=== PATIENT | female | born 1940 | race Caucasian/White ===

== ENCOUNTER 2016-10-04 13:53 | Emergency (ER) | payer MEDICARE, OTHER ==
[~2016-10-04] VITALS: Ht 157.5 cm; Wt 72.6 kg
[2016-10-04 14:39] VITALS: BP 146/65
--- NOTE | 2016-10-04 14:58 | RAD ---
Left foot, 3 views, 10/04/2016: History: Foot pain for 3 days The bony structures are demineralized. There are mild scattered degenerative changes. No acute fracture or destructive bony lesion is seen. There is a small inferior calcaneal spur. There is mild generalized subcutaneous edema. IMPRESSION: No acute bony abnormality is detected.
--- NOTE | 2016-10-04 15:49 | PHYS DOC ---
Past Medical History Past Medical History: High Cholesterol, Hypertension, Other Additional Past Medical Histor: OSTEOPOROSIS Past Surgical History: Hysterectomy, Tonsillectomy, Other Additional Past Surgical Histo: BLADDER LIFT Alcohol Use: None Drug Use: None Adult General Chief Complaint Chief Complaint: FOOT INJURY PAIN HPI HPI Patient is a 76 year old female with history of high cholesterol hypertension who presents today with left foot pain that began 2 days ago. Patient denies any known trauma. She states she could've dropped something like on the foot 2 days ago. She is up and ambulating with no difficulties. Review of Systems Review of Systems Constitutional: Denies fever or chills [] Musculoskeletal: Left foot pain Integument: Denies rash or skin lesions [] Neurologic: Denies headache, focal weakness or sensory changes [] Endocrine: Denies polyuria or polydipsia [] Allergies Allergies Allergies Coded Allergies Type Severity Reaction Last Updated Verified No Known Drug Allergies 09/06/15 No Physical Exam Physical Exam Constitutional: Well developed, well nourished, no acute distress, non-toxic appearance. [] Abdomen: Bowel sounds normal, soft, no tenderness, no masses, no pulsatile masses. [] Skin: Warm, dry, no erythema, no rash. [] Back: No tenderness, no CVA tenderness. [] Extremities: Left foot with trace soft tissue swelling. Diffuse tenderness on palpation of the top of the left foot. No pain or tenderness on palpation of the navicular bone or the base of the fifth metatarsal of the left foot. Full range of motion to the left foot and toes. +2 left pedal pulse. Cap refill less than 2 seconds and left lower extremity. Sensation intact to the left foot. Neurologic: Alert and oriented X 3, normal motor function, normal sensory function, no focal deficits noted. [] Psychologic: Affect normal, judgement normal, mood normal. [] Current Patient Data Vital Signs Vital Signs Date Time Temp Pulse Resp B/P Pulse Ox O2 Delivery O2 Flow Rate FiO2 10/04/16 14:39 98.0 99 16 97 Room Air 98.0 EKG EKG [] Radiology/Procedures Radiology/Procedures [] Course & Med Decision Making Course & Med Decision Making Pertinent Labs and Imaging studies reviewed. (See chart for details) Evaluation shows patient has left foot pain no known injury. X-rays of the left foot interpreted by radiologist are negative for any acute findings noted for arthritis. Diogo wrap was applied to the left foot as well as orthopedic shoe provided to patient by the Ed RN, neurovascular exam done by me is normal with cap refill <2 seconds. Ice elevation encouraged. Tylenol recommended for pain. Follow-up with own PCP in one week. Dragon Disclaimer Dragon Disclaimer This electronic medical record was generated, in whole or in part, using a voice recognition dictation system. Departure Departure Impression: Primary Impression: Foot pain, left Disposition: 01 HOME, SELF-CARE Condition: STABLE Referrals: JENNIFER JULES MD (PCP) KIZZY HUYNH MD Call his office and follow-up in the next 1 week or you can see your own doctor Additional Instructions: You were seen for foot pain. Your left foot xray is negative for any acute findings. 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 Were the orthopedic shoe as tolerated. Take over the counter medications as needed. Follow up with the provided doctor in one week or your own doctor. NORY NIÑO APRN Oct 04, 2016 15:49
== END 2016-10-04 16:11 | disposition home or self-care (01) ==
LOC: ER 13:53
DX: M79.672 Pain in left foot (principal); E78.00 Pure hypercholesterolemia, unspecified; I10 Essential (primary) hypertension; M81.0 Age-related osteoporosis without current pathological fracture
CPT/HCPCS: 73630; 99284